=== PATIENT | male | born 1955 | race Caucasian/White ===

== ENCOUNTER 2017-05-21 11:31 | Day surgery (SDC) | payer MEDICARE ==
[~2017-05-21] VITALS: Ht 182.9 cm; Wt 100.2 kg
[~2017-05-21 11:31] MED LIST: ASPI81CH; Advil200 M1; CYAN500; LAMO25; RANI150; TAMS.4ER
== END 2017-05-21 13:48 | disposition home or self-care (01) ==
LOC: ORSCSDS 11:31
PROVIDERS: Surgery
PROC: 0DBH8ZX Excision of Cecum, Via Natural or Artificial Opening Endoscopic, Diagnostic (ICD-10-PCS; principal; 2017-05-21 13:00)
DX: Z12.11 Encounter for screening for malignant neoplasm of colon (principal); D12.0 Benign neoplasm of cecum; Z86.010 Personal history of colon polyps; Z87.11 Personal history of peptic ulcer disease; F17.210 Nicotine dependence, cigarettes, uncomplicated; Z79.82 Long term (current) use of aspirin; Z79.899 Other long term (current) drug therapy
CPT/HCPCS: 88305; J0330; J1980; J2405

== ENCOUNTER 2024-04-19 12:32 | Emergency (ER) | payer MEDICARE ==
[~2024-04-19] VITALS: Ht 182.9 cm; Wt 102.1 kg
[2024-04-19 12:45] VITALS: BP 184/99
[2024-04-19] MEDS ORDERED: Ketorolac Tromethamine 15mg Vial IV ONE ×2 (12:50→15:25)
[2024-04-19] MEDS ORDERED: Ondansetron HCl 2 MG / ML 2ML Vial IV ONE ×2 (12:50→15:25)
[2024-04-19 13:06] LABS: BASOPHILS ABSOLUTE AUTO 0.04 K/mm3 (0.00-0.23); BASOPHILS PERCENT AUTO 0 % (0-2); EOSINOPHILS ABSOLUTE AUTO 0.15 K/mm3 (0.00-0.68); EOSINOPHILS PERCENT AUTO 1 % (0-6); Hematocrit 45.4 % (37.0-53.0); Hemoglobin 14.8 g/dL (13.5-17.5); IMMATURE GRAN ABSOLUTE AUTO 0.05 K/mm3 (0.00-0.10); IMMATURE GRAN PERCENT AUTO 0 % (0-1); LYMPHOCYTES ABSOLUTE AUTO 1.63 K/mm3 (0.84-5.20); LYMPHOCYTES PERCENT AUTO 15 % (21-46); MONOCYTES ABSOLUTE AUTO 0.52 K/mm3 (0.16-1.47); MONOCYTES PERCENT AUTO 5 % (4-13); Mean Corpuscular HGB 25.6 pg (26.0-34.0); Mean Corpuscular HGB Conc 32.6 g/dL (31.5-36.5); Mean Corpuscular Volume 78 fL (80-100); Mean Platelet Volume 10.4 fL (9.1-12.4); NEUTROPHILS ABSOLUTE AUTO 8.89 K/mm3 (1.96-9.15); NEUTROPHILS PERCENT AUTO 79 % (41-73); Platelet Count 302 K/mm3 (150-400); Red Blood Cell Count 5.79 M/mm3 (4.30-5.90); White Blood Cell Count 11.28 K/mm3 (4.00-11.30)
[2024-04-19 13:26] LABS: Albumin, Blood 4.2 g/dL (3.4-5.0); Albumin/Globulin Ratio 1.3 (0.8-1.8); Bilirubin, Total 0.6 mg/dL (0.1-1.0); Bun/Creatinine Ratio 18.8 (12.0-20.0); Calcium, Blood 9.6 mg/dL (8.5-10.1); Creatinine, Blood 0.91 mg/dL (0.60-1.20); Globulin, Blood 3.2 g/dL (2.2-4.0); Potassium, Blood 3.9 mmol/L (3.5-5.5); Total Protein, Blood 7.4 g/dL (6.4-8.2)
[2024-04-19] MEDS ORDERED: NS 1,000 ML IV SCH (15:40)
[2024-04-19 15:44] LABS: Source, Urine Clean Catch
[2024-04-19 15:50] LABS: Appearance, Urine Hazy (Clear); Bilirubin, Urine Neg (Neg); Blood, Urine 5+ (Neg); Color, Urine Yellow (P-Yellow); Glucose Qualitative, Urine Neg (Neg); Ketones, Urine 1+ (Neg); Leukocyte Esterase, Urine 1+ (Neg); Nitrite, Urine Neg (Neg); Protein, Urine 2+ (Neg); Urobilinogen, Urine NORM (Normal); pH, Urine 6.5 (5.0-8.0)
[2024-04-19 15:57] LABS: Bacteria Many /hpf; Mucus Light (0-Heavy); Red Blood Cells, Urine 25-50 /hpf (0-2); Squamous Epithelial Cells Rare /hpf (Few)
[2024-04-19] MEDS ORDERED: CefTRIAXone Sodium 1,000 MG in NS 100 ML IV ONE (16:00)
[2024-04-19] MEDS ORDERED: OxyCODONE HCL 5 MG TAB PO ONE ×2 (16:05→16:40)
[2024-04-19] MEDS ORDERED: ONDA4 PO (17:30)
[2024-04-19] MEDS ORDERED: BACTRIM DS TAB1 EAC1 PO (17:30)
[2024-04-19] MEDS ORDERED: PERCOCET 10-321 EA10 PO (17:30)
== END 2024-04-19 17:39 | disposition home or self-care (01) ==
LOC: ER 12:32
PROVIDERS: Physician Assistant
DX: N13.2 Hydronephrosis with renal and ureteral calculous obstruction (principal); F17.200 Nicotine dependence, unspecified, uncomplicated; Z79.82 Long term (current) use of aspirin; Z79.899 Other long term (current) drug therapy
CPT/HCPCS: 74177; 80053; 81001; 83690; 85025; 87086; 96365-59; 96375; 99284-25; A9270; J0696; J1885; J2405; J7030; Q9967

== ENCOUNTER → 2024-06-13 | Outpatient (CLI) | payer MEDICARE, OTHER ==
[~2024-06-13] MED LIST changes: +BACTRIM DS TAB1 EAC1 PO; +ONDA4 PO; +PERCOCET 10-321 EA10 PO
[2024-06-13 14:37] LABS: Source, Urine Clean Catch
[2024-06-13 19:12] LABS: Appearance, Urine Clear (Clear); Bilirubin, Urine Neg (Neg); Blood, Urine Neg (Neg); Color, Urine Yellow (P-Yellow); Glucose Qualitative, Urine Neg (Neg); Ketones, Urine Neg (Neg); Leukocyte Esterase, Urine Neg (Neg); Nitrite, Urine Neg (Neg); Protein, Urine 1+ (Neg); Specific Gravity, Urine 1.025 (1.003-1.022); Urobilinogen, Urine NORM (Normal)
== END ==
LOC: LAB SHORT 14:29 → LAB 14:29
PROVIDERS: Urology
DX: N39.0 Urinary tract infection, site not specified (principal)
CPT/HCPCS: 87086